=== PATIENT | female | born 1975 | race Caucasian/White ===

== ENCOUNTER 2016-12-05 16:46 | Emergency (ER) | payer OTHER ==
[2016-12-05 17:52] VITALS: BP 114/66; PULSE 80; RESP 18; TEMP 99.9; O2SAT 94
--- NOTE | 2016-12-05 18:38 | UCPHY ---
H & P Patient Type: New Smoking Status: Never smoked Time Seen by Provider: 12/05/16 18:22 HPI/ROS: CHIEF COMPLAINT: Flu-like symptoms x2 days HISTORY OF PRESENT ILLNESS: 41-year-old immunocompetent female complaining of 2 days of flu-like symptoms. She did receive an influenza vaccination. She is complaining of fever, chills, myalgias, nasal congestion, nonproductive cough. No urinary complaints. No chest pain. No dyspnea. No rash. REVIEW OF SYSTEMS: A ten point review of systems was performed and is negative with the exception of the items mentioned in the HPI PAST MEDICAL & SURGICAL HISTORY: No pertinent medical or surgical history SOCIAL HISTORY: Nonsmoker, PHYSICAL EXAM (Prior to examination, patient consented to physical exam, hands were washed and my usual and customary physical exam procedures followed) 1) GENERAL: Well-developed, well-nourished, alert and oriented. Appears nontoxic. 2) HEAD: Normocephalic, atraumatic 3) HEENT: Pupils equal, round, reactive to light bilaterally. Sclera anicteric. Nasopharynx, oropharynx, clear, no lesions. No trismus no drooling. Ears bilaterally with normal tympanic membranes. 4) NECK: Full range of motion, no meningeal signs. No Adenopathy 5) LUNGS: Clear auscultation bilaterally, no wheezes, no rhonchi, no retractions. 6) HEART: Regular rate and rhythm, no murmur, no heave, no gallop. 7) ABDOMEN: No guarding, no rebound, no focal tenderness, negative McBurney's, negative Barrientos's, negative Rovsing's, negative peritoneal sign, 8) MUSCULOSKELETAL: Moving all extremities, no focal areas of tenderness, no obvious trauma. No peripheral edema or discoloration. 9) BACK: No CVA tenderness, no midline vertebral tenderness, no fluctuance, no step-off, no obvious trauma, no visual or palpable abnormality. 10) SKIN: No rash, no petechiae. 11) Psychiatric: Patient is oriented X 3, there is no agitation. DIFFERENTIAL DIAGNOSIS: in no particular include but limited to pneumonia, influenza, bronchitis, meningitis (Balbina,D Carmina) Constitutional: Initial Vital Signs Temperature (C) 37.7 C 12/05/16 17:49 Heart Rate 80 12/05/16 17:49 Respiratory Rate 18 12/05/16 17:49 Blood Pressure 114/66 12/05/16 17:49 O2 Sat (%) 94 12/05/16 17:49 O2 Delivery Mode Room Air Allergies/Adverse Reactions: No Known Allergies Allergy (Verified 12/05/16 17:49) Home Medications: Medication Instructions Recorded Oseltamivir Phosphate [Tamiflu] 75 mg PO BIDMEAL 5 Days 12/05/16 MDM/Departure - [facility] ED Course/Re-evaluation: Patient shows no signs of respiratory distress. I think she can be discharged on an outpatient basis. Strict return precautions provided. She feels comfortable being discharged. She also inquired about whether her can be given prophylaxis Tamiflu. I had a spent a significant amount of time inquiring about her 's health, who was not currently with her, she informs me that he has no medical conditions, no allergies, currently asymptomatic. I have agreed to provide him a prescription for Tamiflu 75 mg once daily for 10 days for influenza prophylaxis, his name is Paloma Alford, [facility] 11-07-1972. (Ran Mortensen) The patient was evaluated and managed by the Physician Elastic Cutter Josh Mortensen. My co-signature indicates that I have reviewed this chart and I agree with the findings and plan of care as documented. I am the secondary supervising physician. (Norma Perry) - Depart Disposition: Home, Routine, Self-Care Clinical Impression: Influenza A Instructions: Influenza (ED) Additional Instructions: Return to the emergency department immediately for change in breathing habits, change in voice, change in swallowing habits, change in mental status, or any other symptoms that concern you. Prescriptions: Oseltamivir Phosphate [Tamiflu] 75 mg PO BIDMEAL 5 Days Referrals: Follow-up, with your primary care provider in 3-4 days [Other] - As per Instructions - PQRS PQRS Measurement: Not applicable (Ran Mortensen)
== END 2016-12-05 18:56 | disposition home or self-care (01) ==
LOC: CED 16:46
DX: J09.X2 Influenza due to identified novel influenza A virus with other respiratory manifestations (principal)
CPT/HCPCS: 87400-PO

== ENCOUNTER → 2017-01-18 | Outpatient (CLI) | payer OTHER | LOC: FIMAGING 13:31 | DX: Z12.31 Encounter for screening mammogram for malignant neoplasm of breast (principal) | CPT/HCPCS: G0202 ==

== ENCOUNTER → 2017-06-15 | Outpatient (CLI) | payer OTHER ==
[~2017-06-15] MED LIST: GADOBUTROL 10 ML VIAL IVP ONE
== END ==
LOC: FIMAGING 16:17
PROVIDERS: ATTEND Physician Assistant
DX: H54.7 Unspecified visual loss (principal); R29.810 Facial weakness; R51 Headache
CPT/HCPCS: A9585

== ENCOUNTER → 2017-11-24 | Outpatient (CLI) | payer OTHER | LOC: FIMAGING 07:53 | PROVIDERS: ATTEND Psychiatry & Neurology Neurology | DX: H02.402 Unspecified ptosis of left eyelid (principal) | CPT/HCPCS: A9585 ==

== ENCOUNTER → 2018-01-10 | Outpatient (CLI) | payer OTHER | LOC: FIMAGING 12:46 | PROVIDERS: ATTEND Internal Medicine | DX: E04.1 Nontoxic single thyroid nodule (principal); H05.20 Unspecified exophthalmos; E05.00 Thyrotoxicosis with diffuse goiter without thyrotoxic crisis or storm ==